=== PATIENT | male | born 1995 | race Caucasian/White ===

== ENCOUNTER 2018-02-14 09:50 | Emergency (ER) | payer BC, MEDICAID ==
[2018-02-14 09:57] VITALS: BP 136/80
[2018-02-14] MEDS ORDERED: DEXAMETHASONE SOD PHOS INJ 10 MG/1 ML VIAL IM ONE (10:16)
--- NOTE | 2018-02-14 11:08 | RADIOLOGY REPORT (SQ) ---
EXAM DESCRIPTION: CHEST 2 VIEWS COMPLETED DATE/TIME: 02/14/2018 10:55 am REASON FOR STUDY: cough wheeze COMPARISON: None. EXAM PARAMETERS: NUMBER OF VIEWS: two views TECHNIQUE: Digital Frontal and Lateral radiographic views of the chest acquired. RADIATION DOSE: NA LIMITATIONS: none FINDINGS: LUNGS AND PLEURA: No opacities, masses or pneumothorax. No pleural effusion. MEDIASTINUM AND HILAR STRUCTURES: No masses or contour abnormalities. HEART AND VASCULAR STRUCTURES: Heart normal size. No evidence for failure. BONES: No acute findings. HARDWARE: None in the chest. OTHER: No other significant finding. IMPRESSION: NO ACUTE RADIOGRAPHIC FINDING IN THE CHEST. TECHNICAL DOCUMENTATION: JOB ID: [id number] [employer]- All Rights Reserved Reading location - IP/workstation name: [email or web address]
--- NOTE | 2018-02-14 11:39 | ER Document Report ---
ED Flu Like - General Chief Complaint: Flu Symptoms Stated Complaint: COUGH Time Seen by Provider: 02/14/18 10:02 Mode of Arrival: Ambulatory Information source: Patient Notes: Patient is a 23-year-old male comes emergency room complaining of 2-day onset of fever cough and congestion. Patient state yesterday was worse with congestion cough and a sore throat today he is just congested with a little bit of wheezing. He smokes a minimal I pack of cigarettes a day. He denies having any fever denies any other medical problems. Also states that he is aches all over his body as well. He has not taken any Tylenol or Motrin for the aches pains. He has not had any fever today. He does not have a productive cough. TRAVEL OUTSIDE OF THE [place] IN LAST 30 DAYS: No - HPI Onset: Yesterday Timing/Duration: Sudden Quality of pain: Achy Severity: Mild Pain Level: 1 - As I have cancer Shortness of breath: Mild Associated symptoms: Allergy/hay fever, Body/muscle aches, Fever, Hoarseness, Rhinnorhea, Sinus pain/drainage Similar symptoms previously: No Recently seen / treated by doctor: No - Related Data Allergies/Adverse Reactions: albuterol [Albuterol] Allergy (Verified 06/20/11 08:58) swelling Past Medical History - General Information source: Patient - Social History Smoking Status: Current Every Day Smoker Cigarette use (# per day): Yes - Pack a day Chew tobacco use (# tins/day): No Frequency of alcohol use: None Drug Abuse: None Family History: Reviewed & Not Pertinent Patient has suicidal ideation: No Patient has homicidal ideation: No Renal/ Medical History: Denies: Hx Peritoneal Dialysis - Immunizations Hx Diphtheria, Pertussis, Tetanus Vaccination: No Review of Systems - Review of Systems Constitutional: See HPI, Fever EENT: See HPI, Nose congestion, Nose discharge, Sinus pressure, Sinus discharge , Throat pain Cardiovascular: No symptoms reported Respiratory: See HPI, Cough, Wheezing Gastrointestinal: No symptoms reported Genitourinary: No symptoms reported Male Genitourinary: No symptoms reported Musculoskeletal: No symptoms reported Skin: No symptoms reported Hematologic/Lymphatic: No symptoms reported Neurological/Psychological: No symptoms reported -: Yes All other systems reviewed and negative Physical Exam - Vital signs Vitals: Temp Pulse Resp BP Pulse Ox 97.6 F 66 20 136/80 H 97 02/14/18 09:55 02/14/18 09:55 02/14/18 09:55 02/14/18 09:55 02/14/18 09:55 Interpretation: Hypertensive - Notes Notes: PHYSICAL EXAMINATION: GENERAL: Patient is a well-nourished well-developed 23-year-old male who on physical examination today is in no apparent distress. Actually he is audible wheezing but he does not appear very sickly. HEAD: Atraumatic, normocephalic. EYES: Pupils equal round and reactive to light, extraocular movements intact, sclera anicteric, conjunctiva are normal. ENT: Examination head and upper airway showed nasal mucosa to be erythematous and edematous with some rhinorrhea noted clear in color. Also noted is bilateral nasal congestion. Mild frontal and maxillary sinus tenderness to palpation. Examination of the ears show bilateral external canals having mild cerumen but no obstruction of the view of the TMs both bulging slightly. There is no air-fluid level. Continuation exam of the oral cavity shows posterior pharynx has a moderate amount of erythema with drainage noted yellowish to clear color thick in nature. Bilateral tonsils are slightly enlarged but no exudate. Uvula is moderate erythema but no exudate. There is no encroachment on uvula airways patent. NECK: Normal range of motion, supple without lymphadenopathy LUNGS: Auscultation patient's lung fitch shows he has bilateral breath sounds breath sounds are increased throughout with inspiratory and expiratory wheeze noted. There is no rhonchi or rales heard. HEART: Regular rate and rhythm without murmur Musculoskeletal: Normal range of motion, no pitting or edema. No cyanosis. NEUROLOGICAL: Normal speech, normal gait. Normal sensory, motor exams PSYCH: Normal mood, normal affect. SKIN: Warm, Dry, normal turgor, no rashes or lesions noted. Course - Re-evaluation Re-evalutation: 02/14/18 11:39 I informed patient without fever I seriously doubt that he would have any kind of a bacterial infection although given that he smokes greater than a pack of cigarettes a day and chest x-ray was warranted to rule out any possibility of a pneumonia or early infiltrate. The x-ray showed no acute findings. Although he was wheezing substantially patient has allergies to albuterol so I am going to place him on a steroid taper along with some Sudafed believe that we will cover the asthmatic bronchitis portion of his presentation. I have informed him that if he spikes a fever or he gets worse to return to ER for a recheck. - Vital Signs Vital signs: Temp Pulse Resp BP Pulse Ox 97.6 F 66 20 136/80 H 97 02/14/18 09:55 02/14/18 09:55 02/14/18 09:55 02/14/18 09:55 02/14/18 09:55 Discharge - Discharge Clinical Impression: Acute asthmatic bronchitis Disposition: HOME, SELF-CARE Instructions: Bronchitis With Bronchospasm (Wheezing) ([facility]), Upper Respiratory Illness ([facility]) Additional Instructions: Home today rest. Medication as prescribed. Since she smoked pretty much the diagnosis with the wheezing you have going on is going to be bronchitis with an asthma aspect. At this point you do not need any antibiotics. We are going to treat you with a steroid since you cannot do a re-breathing treatments and something to dry up the drainage in your nose. Drying up of the nose should stop the cough and that should make you feel better. Again should you spike a fever or get worse please return to ER for recheck. Prescriptions: Prednisone 10 mg PO ASDIR 6 Days #1 tab.ds.pk Pseudoephedrine HCl [Sudafed 12 Hour] 120 mg PO BID #20 tablet.er Forms: Smoking Cessation Education, Return to Work Referrals: [facility] [NO LOCAL MD] - Follow up as needed
== END 2018-02-14 11:57 | disposition home or self-care (01) ==
LOC: ER 09:50
DX: J45.909 Unspecified asthma, uncomplicated (principal); R05 Cough; R50.9 Fever, unspecified; R09.81 Nasal congestion; J35.1 Hypertrophy of tonsils; J34.89 Other specified disorders of nose and nasal sinuses; M79.10 Myalgia, unspecified site; R49.0 Dysphonia; H61.23 Impacted cerumen, bilateral; F17.210 Nicotine dependence, cigarettes, uncomplicated; Z88.8 Allergy status to other drugs, medicaments and biological substances
CPT/HCPCS: 99283; 96372; 71046; J1100